=== PATIENT | male | born 1970 | race Caucasian/White ===

== ENCOUNTER 2016-05-06 10:27 | Inpatient (IN) | payer OTHER ==
[2016-05-06] VITALS (34 sets, daily range): BP systolic 127–173; BP diastolic 82–120; Ht 180.3 cm; Wt 96.8 kg
[~2016-05-06] VITALS: Ht 180.3 cm; Wt 96.8 kg
--- NOTE | ~2016-05-06 | HEMODYNAMI ---
PATIENT:PRIYA SPRINGER MEDICAL RECORD: [id number] : 74 LOCATION:[facility] [id number] ADMISSION DATE: 05/06/16 Generatedon:05/06/201612:07 Patient name: PRIYA SPRINGER Patient #: [id number] SSN: : Date of study: 05/06/2016 Page: Of Hemodynamic Procedure Report Patient Data Patient Demographics Procedure consent was obtained First Name: PRIYA Gender: Male Last Name: RACHEAL : 1970 Middle Initial: A Age: 45 year(s) Patient #: [id number] Race: Unknown Additional ID: [id number] Contact details Address: [address] [place] [address] [place] State: [place] City: [place] Zip code: [address] Past Medical History Allergies: No known allergies Admission Admission Data Admission Date: 05/06/2016 Admission Time: 11:13 Admit Source: Emergency department Room #: D.CV02 Height (in.): 71 BSA: 2.13 (m2) Height (cm.): 180.34 BMI: 28.59 (kg/m2) Weight (lbs.): 205 Weight (kg.): 92.99 Procedure Procedure Types Cath Procedure Diagnostic Procedure [facility] w/Coronaries PCI Procedure AMI-BMS/RICHARD Initial Coronary Thrombectomy Initial Miscellaneous Procedures Moderate Sedation up to 30 minutes Procedure Description Procedure Date Procedure Date: 05/06/2016 Procedure Start Time: 11:23 Procedure End Time: 12:05 Procedure Staff Name Function Lencho Avila MD Performing Physician Brina Crawford RT Scrub Yony Dos Santos RN Nurse Elie Sanchez RT Monitor Ronny Cason RT Bakery Helper Procedure Data Cath Procedure Fluoroscopy Diagnostic fluoroscopy Total fluoroscopy Time: 9.8 time: 9.8 min min Diagnostic fluoroscopy Total fluoroscopy dose: dose: 808.13 mGy 808.13 mGy Contrast Material Contrast Material Type Amount (ml) Isovue 300 163 Entry Location Entry Primary Successful Side Size Upsize Upsize Entry Closure Succes sful Closure Location (Fr) 1 (Fr) 2 (Fr) Remarks Device Remarks Femoral Right 6 Fr Vascade artery Short Closure System Estimated blood loss: 10 ml Diagnostic catheters Device Type Used For End Catheter Placement Cordis 5Fr Pigtail Procedure Catheter (MP) Cordis 5Fr JL 4.0 Procedure Catheter (MP) Cordis 5Fr 3DRC Catheter Procedure (MP) Procedure Complications No complications Procedure Medications Medication Administration Route Dosage Oxygen NC 2 l/min Heparin Flush Bag added to field 2 bags (1000units/500ml NS) 0.9% NaCl I.V. 100 ml/hr Benadryl I.V. 50 mg Fentanyl I.V. 100 mcg Versed I.V. 2 mg Heparin Bolus I.V. 5000 units Integrilin (Bolus I.V. 8.5 ml 2mg/ml) Integrilin (Bolus I.C. 8.5 ml 2mg/ml) Nitroglycerin IC/IA I.C. 300 mcg Fentanyl I.V. 100 mcg Integrilin Drip I.V. drip 14.9 ml/hr (75mg/100ml) Plavix P.O. 600 mg Hemodynamics Rest BSA: 2.13 (m2) O2 Consumption: Estimated: 273.24 (ml/min) O2 Consumption indexed : Estimated:128.28 (ml/min/m) Heart Rate: 88 (bpm) Pressure Samples Time Site Value (mmHg) Purpose Heart Use Rate(bpm) 11:42 AO 129/94(111) Snapshot 97 Snapshots Pre Cath Intra NCS Post Cath Vital Signs Time Heart Resp SPO2 NIBP (mmHg) Rhythm Pain Sedation Rate (ipm) (%) Status Level (bpm) 11:19:33 111 18 98 143/105(117) NSR 0 (11) 10(A) , No pain 11:23:49 91 17 98 152/101(125) NSR 0 (11) 10(A) , No pain 11:28:09 98 17 95 152/98(118) NSR 0 (11) 9(A) , No pain 11:32:27 98 19 98 150/105(112) NSR 0 (11) 9(A) , No pain 11:36:47 95 18 98 155/103(120) NSR 0 (11) 9(A) , No pain 11:41:07 98 17 99 150/104(119) NSR 0 (11) 9(A) , No pain 11:45:23 97 17 96 141/101(112) NSR 0 (11) 9(A) , No pain 11:49:45 84 18 96 133/85(111) NSR 0 (11) 9(A) , No pain 11:53:59 96 17 97 145/102(114) NSR 0 (11) 9(A) , No pain 11:58:20 95 18 97 125/93(119) NSR 0 (11) 9(A) , No pain 12:02:33 93 18 96 128/92(111) NSR 0 (11) 10(A) , No pain Medications Time Medication Route Dose Verified Delivered Reason Notes Effectiveness by by 11:22:38 Oxygen NC 2 Yony Yony used for l/min Levon Dos Santos mold machine operator RN 11:22:50 Heparin Flush added 2 Yony Yony used for Bag to bags Levon Dos Santos RN procedure (1000units/500ml field RN NS) 11:23:06 0.9% NaCl I.V. 100 Yony Yony Per physician ml/hr Levon Dos Santos RN RN 11:24:09 Benadryl I.V. 50 mg Yony Yony Per physician Levon Dos Santos RN RN 11:24:16 Fentanyl I.V. 100 Yony Yony for sedation mcg Levon Dos Santos RN RN 11:24:23 Versed I.V. 2 mg Yony Yony for sedation Levon Dos Santos RN RN 11:31:26 Integrilin I.V. 8.5 Yony Yony for Integr ilin (Bolus 2mg/ml) ml Levon Dos Santos RN antiplatelet 1.5mL RN therapy wasted 11:31:26 Heparin Bolus I.V. 5000 Yony Yony for units Levon Dos Santos RN anticoagulation RN 11:33:49 Integrilin I.C. 8.5 Yony Yony for integr ilin (Bolus 2mg/ml) ml Levon Dos Santos RN antiplatelet 1.5mL RN therapy wasted 11:42:02 Nitroglycerin I.C. 300 Yony Yony for IC/IA mcg Levon Dos Santos RN vasodilation RN 11:42:22 Fentanyl I.V. 100 Yony Yony for sedation mcg Levon Dos Santos RN RN 11:54:05 Integrilin Drip I.V. 14.9 Yony Bhakta for (75mg/100ml) drip ml/hr Levon Dos Santos RN antiplatelet RN therapy 12:03:08 Plavix P.O. 600 Yony Bhakta for mg Levon Dos Santos RN antiplatelet RN therapy Procedure Log Time Note 10:50:05 Ronny Cason RT(R) sent for patient. Start room use. 11:14:33 Informed consent obtained and on chart 11:14:37 Admit Source: Emergency department 11:14:57 Patient arrives emergently. 11:15:01 Diagnostic Cath status Emergency 11:15:13 Patient received from Other to CCL 2 Alert and oriented. Tansferred to table in Supine position. 11:15:14 Warm blankets applied, and niki hugger turned on for patient comfort. 11:15:14 Correct patient and procedure confirmed by team. 11:15:15 ECG and BP/O2 sat monitors applied to patient. 11:15:20 H&P Date Dictated: 05/06/2016 Within 30 days and on chart.. 11:15:21 Pre-procedure instructions explained to patient. 11:15:22 Pre-op teaching completed and patient verbalized understanding. 11:15:24 Family unavailable. 11:15:28 Patient NPO since Breakfast. 11:16:43 Patient allergic to No known allergies 11:16:45 Is the patient allergic to Iodine/contrast media? No. 11:16:47 Is patient on blood thinner?No 11:16:50 Patient diabetic? No. 11:16:58 Previous problem with sedation/anesthesia? No ? 11:16:59 Snore? Yes 11:17:03 Sleep apnea? No 11:17:04 Deviated septum? No 11:17:05 Opens mouth fully? Yes 11:17:05 Sticks out tongue? Yes 11:17:07 Airway obstruction? No ? 11:17:08 Dentures? No ? 11:17:11 Pre procedure: right dorsailis pedis pulse 2+ Normal; easily identifiable; not easily obliterated 11:17:14 Patient pain scale 0/10 ?. 11:17:32 IV patent on arrival in right antecubital with 0.9% NaCl at KVO. 11:17:35 IV patent on arrival in left antecubital with 0.9% NaCl at KVO. 11:17:50 Right groin area was prepped with chlora-prep and draped in sterile fashion 11:17:52 Sharps counted by scrub and verified by R.N. 11:17:52 Alarms reviewed by R. N. 11:17:56 Use device set Femoral Dx 11:17:59 Tegaderm 4 x 4 opened to sterile field. 11:18:00 Acist Manifold opened to sterile field. 11:18:00 Acist Hand Control opened to sterile field. 11:18:01 Acist Syringe opened to sterile field. 11:18:01 Bag Decanter opened to sterile field. 11:18:02 Medline Cath Pack opened to sterile field. 11:18:03 St Vish 260cm J .035 wire opened to sterile field. 11:18:05 Diagnostic Infinity 5Fr Multipack catheter opened to sterile field. 11:18:20 Vital chart was started 11:18:47 ThoughtLeadr BasixCompak Inflation Kit opened to sterile field. 11:18:48 Pierce Whisper J 300cm 0.014 guide wire opened to sterile field. 11:18:57 Terumo 6Fr [place] Sheath opened to sterile field. 11:19:14 Physician arrived 11:19:14 --------ALL STOP TIME OUT------ 11:19:15 Final Timeout: patient, procedure, and site verified with staff and physician. All members of the team are in agreement. 11:19:18 Right groin site verified by team. 11:19:21 Physical assessment completed. ASA score P 2 - A patient with mild systemic disease as per Lencho Avila MD. 11:19:26 Sedation plan: IV Moderate Sedation Versed, Fentanyl 11:22:38 Oxygen 2 l/min NC was given by Yony Dos Santos RN; used for procedure; 11:22:50 Heparin Flush Bag (1000units/500ml NS) 2 bags added to field was given by Yony Dos Santos RN; used for procedure; 11:23:06 0.9% NaCl 100 ml/hr I.V. was given by Yony Dos Santos RN; Per physician; 11:23:20 Procedure started. 11:23:20 Full Disclosure recording started 11:23:23 Local anesthetic to right femoral artery with Lidocaine 2% by Lencho Avila MD.INITIAL ACCESS ONLY 11:23:56 Baseline sample Acquired. 11:23:58 Zero performed for pressure channel P1 11:24:09 Benadryl 50 mg I.V. was given by Yony Dos Santos RN; Per physician; 11::13 Rhythm: sinus rhythm , w/ ST elevation 11:24:16 Fentanyl 100 mcg I.V. was given by Yony Dos Santos RN; for sedation; 11::23 Versed 2 mg I.V. was given by Yony Dos Santos RN; for sedation; 11:25:14 A 6 Fr Short sheath was inserted into the Right Femoral artery 11:25:17 A Cordis 5Fr Pigtail Catheter (MP) was advanced over the wire and used for Procedure. 11::23 LV gram done using UNGER 11:: Injector settings: Ml/sec: 10, Volume: 20, 11:25:42 EF : 55 % 11:25:44 Catheter removed. 11:25:49 A Cordis 5Fr JL 4.0 Catheter (MP) was advanced over the wire and used for Procedure. 11:26:51 LCA angiography performed. 11:27:40 Catheter removed. 11:27:45 A Cordis 5Fr 3DRC Catheter (MP) was advanced over the wire and used for Procedure. 11:28:13 RCA angiography performed. 11:29:59 Cordis 6FR XBLAD 4.0 guide catheter opened to sterile field. 11:30:05 Kimberly Sci Choice PT Extra Support J 300cm .014 gu opened to sterile field. 11:30:08 Catheter removed. 11:30:09 Proceeding to intervention. 11:30:18 6 Fr xblad 4 guide catheter was inserted over the wire 11::22 pt extra support wire advanced. 11:31:24 Wire advanced across lesion. 11::26 Integrilin (Bolus 2mg/ml) 8.5 ml I.V. was given by Yony Dos Santos RN; for antiplatelet therapy; Integrilin 1.5mL wasted ::26 Heparin Bolus 5000 units I.V. was given by Yony Dos Santos RN; for anticoagulation; ::27 Inflation number: 1 A Kimberly Sci [place] 2.0 X 20 balloon was prepped and advanced across the Mid LAD, then inflated to 13 ZULEIMA for 0:10 (min:sec). 11::38 Inflation number: 2 The Kimberly Sci [place] 2.0 X 20 balloon was reinflated across the Mid LAD, to 13 ZULEIMA for 0:00 (min:sec). 11:33:07 Patient Weight : 92.99 lbs 11:33:11 Patient Height : 180.34 inches 11:33:49 Integrilin (Bolus 2mg/ml) 8.5 ml I.C. was given by Yony Dos Santos RN; for antiplatelet therapy; integrilin 1.5mL wasted 11:35:43 Balloon removed over the wire. 11:40:19 Inflation Number: 3 A Topmalltronic Integrity 3.5 X 30 stent was prepped and advanced across the Mid LAD. The stent was deployed at 13 ZULEIMA for 0:13 (min:sec). 11:42:02 Nitroglycerin IC/IA 300 mcg I.C. was given by Yony Dos Santos RN; for vasodilation; 11:42:22 Fentanyl 100 mcg I.V. was given by Yony Dos Santos RN; for sedation; 11:42:41 Stent catheter was removed intact over wire. 11:47:38 Angiojet 4Fr XMI Catheter opened to sterile field. 11:48:28 Angiojet inserted into the LAD. 11:50:11 Angiojet run time 10 seconds 11:51:26 Angiojet run time 10 seconds 11:51:32 Angiojet total run time 20 seconds 11:51:33 Angiojet catheter removed over the wire. 11:54:05 Integrilin Drip (75mg/100ml) 14.9 ml/hr I.V. drip was given by Yony Dos Santos RN; for antiplatelet therapy; 11:54:11 Wire removed. 11:54:12 Guide catheter removed. 11:54:13 ACC Post-intervention GUILLERMO Flow is 3. 11:54:37 Vascade 6/7 Fr Closure Device opened to sterile field. 11:54:49 Sheath removed intact; hemostasis achieved with Vascade Closure System to the Right Femoral artery. 11:54:50 Procedure ended.(Physican Out) 11:55:16 Fluoroscopy time 09.80 minutes. 11:55:22 Fluoroscopy dose: 808.13 mGy 11:55:22 Flurop Dose total: 808.13 11:55:27 Contrast amount:Isovue 300 163ml. 11:55:28 Sharps counted by scrub and verified by R.N. 11:56:53 Insertion/operative site no bleeding no hematoma. 11:57:02 Post-op/insertion site Right Femoral artery dressed using a 4 x 4 and Tegaderm. 11:57:04 Post Procedure Pulses reassessed and unchanged 11:57:13 Post-procedure physical assessment completed. ASA score P 2 - A patient with mild systemic disease as per Lencho Avila MD. 11:57:15 Post procedure rhythm: sinus rhythm 11:57:26 Estimated blood loss: 10 ml 11:57:28 Post procedure instruction explained to patient.Patient verbalizes understanding. 11:57:29 Patient needs reinforcement of post procedure teaching. 11:58:16 Procedure type changed to Cath procedure, Diagnostic procedure, LHC, LHC w/Coronaries, PCI procedure, AMI-BMS/RICHARD Initial, Coronary Thrombectomy Initial, Miscellaneous Procedures, Moderate Sedation up to 30 minutes 11:58:19 Procedure Complication : No complications 11:59:43 Procedure and supply charges have been captured, reviewed, submitted and are correct. 12:03:08 Plavix 600 mg P.O. was given by Yony Dos Santos RN; for antiplatelet therapy; 12:03:38 Femstop placed over the right femoral artery at 160 mmHg. Hemostasis achieved. 12:04:01 Due to oozing, Femstop placed. 12:04:08 St Vish Femstop Arch Gold opened to sterile field. 12:05:31 Vital chart was stopped 12:05:32 See physician's report for complete and final results. 12:05:36 Report given to ICU. 12:05:39 Patient transfered to ICU with Bed. 12:05:48 Procedure ended. 12:05:48 Full Disclosure recording stopped 12:06:30 ACC-PCI Only Patient was given prescriptions, or instructed by Lencho Avila MD to start/continue the following medications upon discharge: Plavix 12:06:49 End room use (Document Last) Intervention Summary Intervention Notes Time ActionType Lesion and Equipment Action# Pressure Duration Attributes Used 11:31:27 Inflate Mid LAD Kimberly 1 13 00:10 balloon Sci Winona 2.0 X 20 balloon 11:31:38 Reinflate Mid LAD Kimberly 2 13 00:00 balloon Sci Win[place] 2.0 X 20 balloon 11:40:19 Place stent Mid LAD Medtronic 3 13 00:13 Integrity 3.5 X 30 stent Device Usage Item Name Manufacture Quantity Catalog Number Hospital Part Current Mini mal Lot# / Charge Number Stock Stock Serial# Code Tegaderm 4 1 [id number] 546045 040636 5 x 4 Acist Acist 1 86166 107968 191636 273663 5 Manifold Medical Systems Inc Acist Hand Acist 1 41094 257791 123897 510284 5 Control Medical Systems Inc Acist Acist 1 76946 610129 551702 501758 20 Syringe Medical Systems Inc Bag Microtek 1 2002S 058630 13809 562841 5 Familiar Inc. Medline Cardinal 1 [id number] 694020 04097 639158 [address] St Vish 1 320775 191761 485888 599218 30 260cm J .035 wire Diagnostic Cardinal 1 [id number] 125708 29694 402891 30 Infinity Health 5Fr Multipack catheter Merit Merit 1 [id number] 047650 841084 198558 15 BasixCompak Medical Inflation Kit Pierce Pierce 1 [id number] 702500 829160 096241 5 Whisper J Vascular 300cm 0.014 guide wire Terumo 6Fr Terumo 1 AMR194 529098 238505 748063 40 [place] Sheath Cordis 5Fr Cardinal 1 362534 5 Pigtail Health Catheter (MP) Cordis 5Fr Cardinal 1 311194 5 JL 4.0 Health Catheter (MP) Cordis 5Fr Cardinal 1 242857 5 3DRC Health Catheter (MP) Cordis 6FR Cardinal 1 [id number] 320622 123616 848244 3 XBLAD 4.0 Health guide catheter Kimberly Sci Kimberly 1 [id number] 50430020180918 509571 5 Choice PT Scientific Extra Support J 300cm .014 gu Kimberly Sci Kimberly 1 [id number] 292034 276200 925933 1 [id number] Winona Scientific 2.0 X 20 balloon Medtronic Medtronic 1 [id number] 385182 046270 779666 1 [id number] Integrity 3.5 X 30 stent Angiojet Kimberly 1 880554-144 636948 407040 388208 1 4Fr XMI Scientific Catheter Vascade 6/7 Cardiva 1 [id number] 982441 775127 714815 5 Fr Closure Medical, Device Inc. St Vish St Vish 1 [id number] 303420 281168 068401 5 Femstop Arch Gold Signature Audit [place] Stage Time Signature Unsigned Intra-Procedure 05/06/2016 Ronny Cason 12:07:18 PM RT(R) Signatures Monitor : Elie Sanchez RT Signature : Date : Time : [facility] [address] [place] [address]
[2016-05-06 12:44] LABS: CALC OSMOLALITY 278 mosm/kg (275-300); CALCIUM 8.8 mg/dL (8.5-10.1); CHLORIDE - SERUM 102 mmol/L (98-107); CREATININE - SERUM 0.9 mg/dL (0.6-1.3); GLUCOSE 126 mg/dL (74-106); POTASSIUM - SERUM 4.3 mmol/L (3.5-5.1); SODIUM 138 mmol/L (136-145); UREA NITROGEN 14 mg/dL (7-18); eGFR NON AFRICAN AMERICAN > 90 mL/min (90-120)
[2016-05-06 12:45] LABS: BASOPHILS 0.1 % (0.0-2.0); EOSINOPHILS 0 % (0-7); HEMATOCRIT 42.3 % (42.0-54.0); HEMOGLOBIN 15.2 g/dL (13.5-17.5); IMMATURE GRANULOCYTES 0.3 % (0-5); LYMPHOCYTES 3.8 % (15-50); MCH 30.8 pg (26.0-34.0); MCHC 35.9 g/dL (31.0-37.0); MCV 85.6 fL (80.0-100.0); MEAN PLATELET VOLUME 9.6 fL (7.4-10.4); MONOCYTES 2.2 % (2-11); NEUTROPHILS 93.6 % (40-80); PLATELET COUNT 193 10x3/uL (130-400); RBC 4.94 10x6/uL (4.20-6.10); RDW 12.7 % (11.5-14.5); WBC 15.1 10x3/uL (4.8-10.8)
--- NOTE | 2016-05-06 15:28 | NUR ---
1330RECIEVED PER FLOW SHEET-AWAKE ALERT-STATES PAIN FREE AT THIS TIME-STATES ORIGINAL ELIZ 12/27-MID CHEST TO BACK- CURRENTLY-ST ON MONITOR -R AC INFUSING INTEGRELIN AT 14.7-N/S AT 100ML-PROVIDED URINAL AND STRONGLY INFORMED TO REMAIN IN BED FLAT UNTIL 1630-SITE SOFT BELOW FEMSTOP AND ABOVE-BOUNDING R PP-ICE CHIPS GIVEN-O2 AT 2L ACCOUNT SUPPORT MANAGER AND FAMILY BROUGHT TO [facility] 1345-FEMSTOP DECREASED PER PROTOCOL-R PPP BOUNDING-SOFT TO SITE 1400-H2O GIVEN-FAMILY REMAINS AT [facility]-FEMSTOP DECREASED PER PROTOCOL-R PPP BOUNDING-ST 100- 1415-FEMSTOP DECREASED PER PROTOCOL-R PPP BOUNDING-SOFT TO TOUCH 1430-DR GARNICA AT [facility]-QUESTIONS ADDRESED BY FAMILY-FEMSTOP RELEASED-R PPP BOUNDING 1445-RESTING QUIETLY-FAMILY AT BEDSIDE-R GROIN SITE SOFT TO TOUCH 1500-NO CHANGES NOTED-SR ON MONITOR
--- NOTE | 2016-05-06 16:37 | NUR ---
Patient Name: PRIYA SPRINGER Admission Status: Urgent Accout number: [id number] Admission Date: 05-06-2016 : 1970 Admission Diagnosis:ST ELEVATION (STEMI) MYOCARDIAL INFARCTION OF [facility] SITE Attending: KENDELL Current LOS: 1 Anticipated DC Date: 05-07-2016 Planned Disposition: Home Primary Insurance: [employer] POS FLEXCARE Is the patient Alert and Oriented? Yes * How many steps to enter\exit or inside your home? FOUR --WITH HAND RAIL * PCP DR KWASI SCHWARTZ * Pharmacy [facility] IN [place], [place] * Preadmission Environment Home with Family * ADLs Independent * Equipment None * List name and contact numbers for known caregivers / representatives who currently or will assist patient after discharge: CAIT SPRINGER, SPOUSE, * Community resources currently utilized None * Additional services required to return to the preadmission environment? No * Can the patient safely return to the preadmission environment? Yes * Has this patient been hospitalized within the prior 30 days at any hospital? No Discharge Planning Comments: CM MET WITH PATIENT TO ASSESS DC PLAN/NEEDS. PT STATED THAT HE LIVES AT HOME WITH HIS FAMILY AND IS INDEPENDENT IN HIS CARE/ADL'S. STATED THAT HE AMBULATES WITH NO ASSISTANCE AND TYPICALLY DRIVES HIMSELF. HIS , CAIT, WILL DRIVE HIM HOME AT DC. HE STATED THAT HE HAS NO DME EQUIPMENT AND HAS NEVER USED HH SERVICES IN THE PAST. HE DENIED NEED FOR ANY DME OR HH SERVICES AT DISCHARGE. HE STATED THAT HIS HOME IS A SAFE PLACE AND PLANS TO RETURN HOME AT DISCHARGE. HE VOICED NO DISCHARGE NEEDS AT THIS TIME. CM WILL FOLLOW AND ASSIST WITH ANY DC NEEDS THEY ARISE. Industrial Engineering Technologist: Cait Zepeda RN, CM
--- NOTE | 2016-05-06 18:35 | NUR ---
1630-INTEGRILIN INFUSED [id number] SCALE 0/0-CHEST--R GROIN SOFT TO TOUCH-NO HEMATOMA AND POUNDING PEDAL PULSE 1700-DR GARNICA NOTIFIED REGARDING NIBP 156/114-HR 110-NO RESPONSE TO LOPRESSOR DOSE GIVEN-ORDER RECIEVED AND CONFIRMED-100MG PO NOW AND 100MG PO AT 2100-THEN BID 1715-LOPRESSOR PO GIVEN ORDERED-FAMILY EXPRESSED STRONG CONCERN REGARDING NIBP-PT TEACHING-WILL SEE EFFECTS APPROX 2HR-AND CALL DR GARNICA FOR ADDITIONAL ORDERS-VOCALIZED USED DIOVON IN THE PAST WITH GOOD RESULTS 1730-FAMILY MEMBER AT DESK AND STATED MEDICINE NOT WORKING-PT/FAMILY TEACHING DONE -IV BLOOD PRESSURE MEDICINE
--- NOTE | 2016-05-06 19:00 | NUR ---
PT AOX4, DENIES CHEST PAIN. HYPERTENSIVE ON MONITOR. RT GROIN SOFT WITH NO S/S OF HEMATOMA. PT REPOSITIONED FOR COMFORT. RESPIRATIONS UNLABORED, LUNG SOUNDS CLEAR. URINAL AT BEDSIDE. VOICES NO FURTHER NEEDS AT THIS TIME. CALL LIGHT AND BEDSIDE TABLE WITHIN PT REACH. CPOC.
--- NOTE | 2016-05-06 21:00 | NUR ---
FAMILY AT BEDSIDE, UPDATE GIVEN. DENIES CHEST PAIN. FRESH WATER TO BEDSIDE. PT REPOSITIONED FOR COMFORT. RT GROIN SOFT WITH NO S/S OF HEMATOMA. PEDAL PULSES BOUNDING. DENIES FURTHER NEEDS AT THIS TIME. CALL LIGHT AND BEDSIDE TABLE WITHIN PT REACH. CPOC.
--- NOTE | 2016-05-06 22:58 | NUR ---
REMAINS HYPERTENSIVE ON MONITOR, TAUTH PAGED.
--- NOTE | 2016-05-06 23:04 | NUR ---
CALLBACK FROM MESSI GARNICA REC'D
[2016-05-07] VITALS (13 sets, daily range): BP systolic 110–152; BP diastolic 70–110
--- NOTE | 2016-05-07 01:00 | NUR ---
PT RESTING QUIETLY WITH UNLABORED RESPIRATIONS. INDEPENDENT REPOSITIONING. PEDAL PULSES BOUNDING, RT GROIN WITH NO S/S OF HEMATOMA. CALL LIGHT AND BEDSIDE TABLE WITHIN PT REACH. CPOC.
--- NOTE | 2016-05-07 03:00 | NUR ---
REASSESSMENT COMPLETE, SEE FLOWSHEET FOR ALL FINDINGS. NO ACUTE CHANGES AT THIS TIME, BP TRENDING DOWN. NO S/S OF ACUTE DISTRESS OR PAIN. PEDAL PULSES BOUNDING. RT GROIN SOFT WITH NO S/S OF HEMATOMA. CPOC
[2016-05-07 05:19] LABS: BASOPHILS 0.1 % (0.0-2.0); EOSINOPHILS 0.7 % (0-7); HEMATOCRIT 44.2 % (42.0-54.0); HEMOGLOBIN 15.7 g/dL (13.5-17.5); IMMATURE GRANULOCYTES 0.3 % (0-5); LYMPHOCYTES 13.4 % (15-50); MCH 30.8 pg (26.0-34.0); MCHC 35.5 g/dL (31.0-37.0); MCV 86.7 fL (80.0-100.0); MEAN PLATELET VOLUME 9.7 fL (7.4-10.4); MONOCYTES 7.8 % (2-11); NEUTROPHILS 77.7 % (40-80); PLATELET COUNT 185 10x3/uL (130-400); WBC 16.1 10x3/uL (4.8-10.8)
[2016-05-07 05:45] LABS: CALC OSMOLALITY 272 mosm/kg (275-300); CALCIUM 9.4 mg/dL (8.5-10.1); CARBON DIOXIDE 25.5 mmol/L (21.0-32.0); CHLORIDE - SERUM 103 mmol/L (98-107); CREATININE - SERUM 0.8 mg/dL (0.6-1.3); GLUCOSE 107 mg/dL (74-106); POTASSIUM - SERUM 4.1 mmol/L (3.5-5.1); SODIUM 137 mmol/L (136-145); UREA NITROGEN 11 mg/dL (7-18); eGFR NON AFRICAN AMERICAN > 90 mL/min (90-120)
[2016-05-07] MEDS ORDERED: PRAVACHOL40 MG PO (11:27)
[2016-05-07] MEDS ORDERED: PLAVIX75 MG PO (11:27)
[2016-05-07] MEDS ORDERED: METOPROLOL TART50 MG PO (11:27)
--- NOTE | 2016-05-07 13:12 | NUR ---
0715-RECIEVED AWAKE AND ALERT-STATES FEELS BETTER NOTED SR AT 84 ON MONITOR-PLACED ON TELEMETRY-AMBULATING IN RM WITHOUT DIFFICULTY-ENCOURAGED TO CALL FAMILY -POSSIBLE DISCHARGE -ENCOURAGED TO AMBULATE-BREAKFEST TRAY GIVEN 0800-FAMILY AT BEDSDIE- 0830-RESTING QUIETLY 1015-[facility] CUR[facility] NIBP-117/78-INFORMED NO 0900 BP MEDS GIVEN AT THIS TIME-DIRECTED TO GIVE LOPRESSOR 100MG PO-AND CONTINUE HOME SCRIPT-PT ADDDRESSED QUESTIONS TO DR GARNICA AND DIRECTION GIVEN-PT AND APPEARED SATISFIED-DISCHARGE ORDER GIVEN-R AND L AC-D/C'D WITH TIP INTACT-REVIEWED IN DETAIL R GROIN CARE AND RISK-INFORMED TO CALL 911 FOR CLOSES ER-INFORMED OF HEART RATE CHECK PRIOR TO TAKING LOPRESSOR BETABLOCKER-NOTIFY DR GARNICA OFFICE ASSISTANT UNIT FORESTER IF IN 60'S PRIOR TO TAKING FOR FURTHER DIRECTION 1200-DISCHARGE WITH -PAPER PRESCRIPTIONS GIVEN-UPDATED MED LIST GIVEN
--- NOTE | 2016-05-13 08:46 | DS ---
PATIENT:PRIYA SPRINGER :74 MEDICAL RECORD: [id number] DISCHARGE SUMMARY ADMISSION DATE: 05/06/16 DISCHARGE DATE: 05/07/16 DISCHARGE DIAGNOSES: 1. Acute anterior myocardial infarction. 2. Percutaneous transluminal coronary angioplasty stent LAD. 3. Hypertension. 4. Hyperlipidemia. HOSPITAL COURSE: This is a gentleman who has no previous cardiac history, presented to [facility] with hypertensive crisis, as well as acute anterior myocardial infarction and was transferred here, underwent PTCA stent of the LAD, had an uneventful postop course, blood pressure control with Lopressor. Hyperlipidemia is controlled with pravastatin and was discharged home with the addition of Lopressor, pravastatin, aspirin and Plavix to his medical regimen. We will follow up with [facility] in 1 month in [place]. TRANSINT:[id number] Voice Confirmation ID: [id number] DOCUMENT ID: [id number] CUAUHTEMOC GARNICA MD at 0846 CC: [id number] DICTATION DATE: 05/07/16 1036 DURABILITY TECHNICIAN: 05/07/16 2328 DIS IN 05/07/16 [facility] [address] [place] [address]
--- NOTE | 2016-05-13 08:46 | OP ---
PATIENT NAME: PRIYA SPRINGER MEDICAL RECORD: [id number] :74 LOCATION:D.[facility] D.CV02 ADMISSION DATE:05/06/16 SURGEON: CUAUHTEMOC GARNICA MD DATE OF OPERATION: 05/06/2016 PROCEDURES: 1. PTCA stent LAD. 2. AngioJet thrombectomy LAD. 3. Left heart catheterization. 4. Selective coronary angiography. 5. Left ventriculogram. INDICATION: Acute anterior myocardial infarction. PROCEDURE IN DETAIL: After informed consent was obtained and after detailed explanation of risks, benefits as well as alternative therapies, the patient elected to proceed with angiogram and angioplasty. The right femoral area was prepped and draped in normal sterile fashion. The right femoral artery was cannulated via modified Seldinger technique with placement of 6-Spanish sheath. All catheters exchanged through this sheath. FINDINGS: The left ventriculogram was performed in the standard 30-degree UNGER view, reveals good cardiac wall motion, ejection fraction 50%. SELECTIVE CORONARY ANGIOGRAPHY: 1. Left main showed no significant angiographic disease. 2. Left anterior descending is totally occluded in mid vessel. 3. Left circumflex shows moderate irregularities. 4. Right coronary has moderate irregularities. PTCA STENT OF THE LAD: The stent used is a 3.5 x 30 mm Integrity. There was a large clot burden. We address this with AngioJet thrombectomy. Result was 0% residual stenosis. OVERALL IMPRESSION: Successful percutaneous transluminal coronary angioplasty stent of the left anterior descending along with AngioJet thrombectomy for an acute anterior myocardial infarction with 0% residual stenosis and mormon of GUILLERMO-3 flow. TRANSINT:[id number] Voice Confirmation ID: [id number] DOCUMENT ID: [id number] CUAUHTEMOC GARNICA MD at 0846 CC: [id number] DICTATION DATE: 05/06/16 1203 CONTINUOUS IMPROVEMENT DIRECTOR: 05/06/16 1905 DIS IN 05/07/16 [facility] [address] [id number]
--- NOTE | 2016-05-13 08:46 | HP ---
PATIENT: PRIYA SPRINGER MEDICAL RECORD: [id number] ACCOUNT: [id number] LOCATION:[facility] D.CV02 : 74 ADMISSION DATE: 05/06/16 HISTORY AND PHYSICAL EXAMINATION DIAGNOSES: 1. Acute anterior myocardial infarction. 2. Coronary artery disease. 3. Hyperlipidemia. HISTORY OF PRESENT ILLNESS: This is a gentleman with no previous cardiac history, no real medical history, only a history of a hernia surgery in the past. He is on no medications. He began having chest pain yesterday; however, it abated. Today he had severe chest pain, presented to [facility]. He is positive for an acute anterior myocardial infarction. He was not given thrombolytics secondary to the extreme hypertension. PHYSICAL EXAMINATION: GENERAL APPEARANCE: Well-nourished, well-developed, appears stated age. Level of distress, comfortable. PSYCHIATRIC: Mental status, alert, normal affect. Orientation, oriented to time, place and person. EYES: Lids and conjunctiva, noninjected. No discharge, no pallor. ENT: Lips, teeth, gums, normal dentition. Oropharynx, no cyanosis, no pallor. NECK: Carotid arteries, bilateral normal upstroke, no bruits, no thrills. JUGULAR VEINS: No jugular venous pressure or distention. CERVICAL LYMPH NODES: Nontender, nonenlarged. THYROID: Not enlarged. Nontender. No nodules. LUNGS: Respiratory effort, unlabored. CHEST: Normal curvature. No thoracic deformity. No chest wall tenderness. Percussion, resonant. Auscultation, clear. No wheezes, no rales, no rhonchi. CARDIOVASCULAR: Precordial exam, nondisplaced. No heaves or pericardial thrills. Rate and rhythm, regular. Heart sounds, normal S1, normal S2. No S3, no gallop, no rub. Systolic murmur, not heard. Diastolic murmur, not heard. EXTREMITIES: No cyanosis, no edema. Peripheral pulses, full and equal in all extremities, except as noted. No bruits appreciated. ABDOMEN: Soft, nondistended. Normal aorta. No bruit. Nontender. No masses. Liver, nontender, no hepatomegaly. Spleen, nontender, no splenomegaly. MUSCULOSKELETAL: No joint tenderness. No joint swelling. No erythema. NEUROLOGICAL: Normal gait, normal strength, normal tone. SKIN: Warm and dry. REVIEW OF SYSTEMS: The patient reports easy bruising but reports no swollen glands. The patient reports no fever, no night sweats, no significant weight gain, no significant weight loss. No significant exercise tolerance. The patient reports no dry eyes, no irritation, no vision change. Patient reports no difficulty hearing and no ear pain. Patient reports no frequent nose bleeds or nose and sinus problems. Patient reports on arm pain on exertion. No shortness of breath while lying down. No history of heart murmur. Patient reports no cough, no wheezing or coughing up blood. Patient reports no abdominal pain, no vomiting. Normal appetite. No diarrhea and not vomiting blood. No nausea and no constipation. Patient reports no incontinence. No difficulty urinating. No hematuria. No increased frequency. Patient reports no muscle aches. No weakness, no arthralgias, no back pain. No swelling of the extremities. Patient reports no abnormal mole, no jaundice, no rashes. Reports HISTORY AND PHYSICAL [id number] SELF,BUZZ no loss of consciousness. No weakness and no numbness. No seizures, dizziness, or headaches. The patient reports no depression, no sleep disturbance, feeling safe in a relationship and no alcohol abuse. Patient reports on fatigue. Reports no runny nose or sinus pressure. No itching, no hives, and no frequent sneezing. OVERALL IMPRESSION: Acute anterior myocardial infarction. He was transported here by helicopter. He is still having chest pain. He is still having ST elevation. We will proceed with coronary angiography. Further care depends upon findings of the angiography. TRANSINT:[id number] Voice Confirmation ID: [id number] DOCUMENT ID: [id number] CUAUHTEMOC GARNICA MD at 0846 CC: [id number] DICTATION DATE: 05/06/16 1201 BUILDING ARCHITECTURAL DESIGNER: 05/06/16 1249 DIS IN 05/07/16 [id number] [place] [id number]
== END 2016-05-07 12:00 | disposition home or self-care (01) | DRG 249 ==
LOC: D.CVICU 10:27
PROVIDERS: ADMIT Internal Medicine Interventional Cardiology
PROC: 4A023N7 Measurement of Cardiac Sampling and Pressure, Left Heart, Percutaneous Approach (ICD-10-PCS; 2016-05-06)
PROC: B2111ZZ Fluoroscopy of Multiple Coronary Arteries using Low Osmolar Contrast (ICD-10-PCS; 2016-05-06)
PROC: B2151ZZ Fluoroscopy of Left Heart using Low Osmolar Contrast (ICD-10-PCS; 2016-05-06)
PROC: 02C03ZZ Extirpation of Matter from Coronary Artery, One Artery, Percutaneous Approach (ICD-10-PCS; principal; 2016-05-06 11:30)
PROC: 02703DZ Dilation of Coronary Artery, One Artery with Intraluminal Device, Percutaneous Approach (ICD-10-PCS; 2016-05-06 11:30)
DX: I21.09 ST elevation (STEMI) myocardial infarction involving other coronary artery of anterior wall (principal); I16.9 Hypertensive crisis, unspecified; I25.10 Atherosclerotic heart disease of native coronary artery without angina pectoris; E78.5 Hyperlipidemia, unspecified

== ENCOUNTER 2017-12-01 17:30 | Inpatient (IN) | payer OTHER ==
[~2017-12-01] VITALS: Ht 180.3 cm; Wt 85.9 kg
--- NOTE | ~2017-12-01 | HEMODYNAMI ---
PATIENT:PRIYA SPRINGER MEDICAL RECORD: [id number] : 74 LOCATION:[place] [address] ADMISSION DATE: 12/01/17 Generatedon:12/01/201719:22 Patient name: PRIYA SPRINGER Patient #: [id number] SSN: : Date of study: 12/01/2017 Page: Of Hemodynamic Procedure Report Patient Data Patient Demographics Procedure consent was obtained First Name: PRIYA Gender: Male Last Name: RACHEAL : 1970 Middle Initial: A Age: 47 year(s) Patient #: [id number] Race: Unknown Additional ID: [id number] Contact details [address]: [address] [place] [address] [place]: [place] City: [place] Zip code: [address] Past Medical History Allergies: No known allergies Admission Admission Data Admission Date: 12/01/2017 Admission Time: 18:04 Room #: [facility] Procedure Procedure Types Cath Procedure Diagnostic Procedure LHC LHC w/Coronaries PCI Procedure AMI/SVG/RING FACER PTCA or Stent AMI-BMS/RICHARD Initial Procedure Description Procedure Date Procedure Date: 12/01/2017 Procedure Start Time: 18:26 Procedure End Time: 19:21 Procedure Staff Name Function Joe Chester MD Performing Physician Ronny Cason RT Monitor Yony Dos Santos RN Nurse Roxann Amaya RT Scrub Procedure Data Cath Procedure Fluoroscopy Diagnostic fluoroscopy Total fluoroscopy Time: time: 19.4 min 19.4 min Diagnostic fluoroscopy Total fluoroscopy dose: dose: 1739 mGy 1739 mGy Contrast Material Contrast Material Type Amount (ml) Isovue 300 152 Entry Location Entry Primary Successful Side Size Upsize Upsize Entry Closure Succes sful Closure Location (Fr) 1 (Fr) 2 (Fr) Remarks Device Remarks Femoral Right 6 Fr Exoseal artery Short Estimated blood loss: 10 ml Diagnostic catheters Device Type Used For End Catheter Placement MULTIPACK JL 4.0 5Fr Procedure catheter MULTIPACK 3DRC 5Fr Procedure catheter MULTIPACK Pigtail 5 Fr Procedure catheter Procedure Complications No complications Procedure Medications Medication Administration Route Dosage Oxygen etCO2 Nasal cannula 2 l/min Heparin Flush Bag added to field 2 bags (1000units/500ml NS) 0.9% NaCl I.V. 100 ml/hr Fentanyl I.V. 50 mcg Versed I.V. 1 mg Fentanyl I.V. 50 mcg Versed I.V. 1 mg Fentanyl I.V. 50 mcg Heparin Bolus I.V. 5000 units Fentanyl I.V. 50 mcg Integrilin (Bolus I.V. 7.9 ml 2mg/ml) Phenergan I.V. 25 mg Integrilin Drip I.V. drip 13.8 ml/hr (75mg/100ml) Brilinta P.O. 180 mg Hemodynamics Rest Heart Rate: 81 (bpm) Pressure Samples Time Site Value (mmHg) Purpose Heart Use Rate(bpm) 18:34 AO 109/77(93) Snapshot 95 18:43 AO 110/87(99) Snapshot 95 18:52 AO 104/82(94) Snapshot 95 19:12 LV 128/3,34 Snapshot 91 Gradients Valve Time Site Site Mean SEP/DFP Peak To Heart Use 1 2 (mmHg) (sec/min) Peak Rate (mmHg) (bpm) Aortic 19:14 LV AO 104 Snapshots Pre Cath Intra NCS Post Cath Vital Signs Time Heart Resp SPO2 etCO2 NIBP (mmHg) Rhythm Pain Sedation Rate (ipm) (%) (mmHg) Status Level (bpm) 18:18:42 84 20 0 140/88(105) NSR 0 (11) 10(A) , No pain 18:23:23 77 18 98 30 137/81(100) NSR 0 (11) 10(A) , No pain 18:28:02 81 16 97 0 127/80(102) NSR 0 (11) 9(A) , No pain 18:32:38 91 16 95 37.5 128/81(100) NSR 0 (11) 9(A) , No pain 18:37:15 95 16 98 33 132/88(101) NSR 0 (11) 9(A) , No pain 18:41:51 92 18 98 32.2 127/82(102) NSR 0 (11) 9(A) , No pain 18:48:41 93 18 97 27 139/84(101) NSR 0 (11) 9(A) , No pain 18:53:19 100 18 98 36 117/72(93) NSR 0 (11) 9(A) , No pain 18:57:54 102 16 98 34.5 123/88(101) NSR 0 (11) 9(A) , No pain 19:02:30 86 16 97 36.7 118/83(103) NSR 0 (11) 9(A) , No pain 19:07:05 97 16 98 36 123/90(106) NSR 0 (11) 9(A) , No pain 19:11:39 97 17 99 36.7 135/91(106) NSR 0 (11) 9(A) , No pain 19:16:14 161 29 98 32.2 134/94(101) NSR 0 (11) 10(A) , No pain 19:19:20 101 17 96 37.5 129/94(106) NSR 0 (11) 10(A) , No pain Medications Time Medication Route Dose Verified Delivered Reason Notes Effectiveness by by 18:19:09 Oxygen etCO2 2 Joe Yony Per physician Nasal l/min Henrik Dos Santos RN cannula 18:19:17 Heparin Flush added 2 Joe Yony used for Bag to bags Henrik Dos Santos christmas tree grower (1000units/500ml field NS) 18:19:27 0.9% NaCl I.V. 100 Joe Yony Per physician ml/hr Henrik Dos Santos RN 18:22:16 Fentanyl I.V. 50 Joe Yony for sedation mcg Henrik Dos Santos RN 18:22:23 Versed I.V. 1 mg Joe Yony for sedation Henrik Dos Santos RN 18:25:30 Fentanyl I.V. 50 Joe Yony for sedation mcg Henrik Dos Santos RN 18:25:34 Versed I.V. 1 mg Joe Yony for sedation Henrik Dos Santos RN 18:32:18 Fentanyl I.V. 50 Joe Yony for sedation mcg Henrik Dos Santos RN 18:32:27 Heparin Bolus I.V. 5000 Joe Yony for units Henrik Dos Santos RN anticoagulation 18:38:17 Fentanyl I.V. 50 Joe Yony for sedation mcg Henrik Dos Santos RN 18:49:54 Integrilin I.V. 7.9 Joe Yony for (Bolus 2mg/ml) ml Henrik Dos Santos RN antiplatelet therapy 18:50:40 Phenergan I.V. 25 mg Joe Bhakta for nausea Henrik Dos Santos RN 18:55:30 Integrilin Drip I.V. 13.8 Joe Bhakta for (75mg/100ml) drip ml/hr Henrik Dos Santos RN antiplatelet therapy 19:18:42 Brilinta P.O. 180 Joe Bhakta for mg Henrik Dos Santos RN antiplatelet therapy Procedure Log Time Note 18:00:26 Ronny Cason RT(R) sent for patient. Start room use. 18:17:35 Time tracking: Call back (After hours or weekends) 18:17:40 Plan of Care:Hemodynamics will remain stable., Cardiac rhythm will remain stable., Comfort level will be maintained., Respiratory function will remain adequate., Patient/ family verbilizes understanding of procedure., Procedure tolerated without complication., Recovers from procedure without complications.. 18:17:43 Patient arrives emergently. 18:17:50 Patient received from ED to CCL 1 Alert and oriented. Tansferred to table in Supine position. 18:17:51 Warm blankets applied, and niki hugger turned on for patient comfort. 18:17:52 Correct patient and procedure confirmed by team. 18:17:54 Signed procedure consent form obtained from patient. 18:17:55 ECG and BP/O2 sat monitors applied to patient. 18:17:55 Vital chart was started 18:18:01 Rhythm: sinus rhythm , w/ ST elevation 18:19:09 Oxygen 2 l/min etCO2 Nasal cannula was administered by Yony Dos Santos RN; Per physician; 18:19:17 Heparin Flush Bag (1000units/500ml NS) 2 bags added to field was administered by Yony Dos Santos RN; used for procedure; 18:19:27 0.9% NaCl 100 ml/hr I.V. was administered by Yony Dos Santos RN; Per physician; 18:19:39 Baseline sample Acquired. 18:19:41 Full Disclosure recording started 18:19:45 H&P Date Dictated: 12/01/2017 Emergent; H&P N/A. 18:19:46 Pre-procedure instructions explained to patient. 18:19:47 Pre-op teaching completed and patient verbalized understanding. 18:19:48 Family unavailable. 18:19:51 Patient NPO since Breakfast. 18:19:54 Is the patient allergic to Iodine/contrast media? No. 18:20:00 Is patient on blood thinner?No 18:20:01 Patient diabetic? No. 18:20:04 Previous problem with sedation/anesthesia? No ? 18:20:05 Snore? Yes 18:20:06 Sleep apnea? No 18:20:07 Deviated septum? No 18:20:09 Opens mouth fully? Yes 18:20:09 Sticks out tongue? Yes 18:20:11 Airway obstruction? No ? 18:20:14 Dentures? No ? 18:20:16 Pre procedure: right dorsailis pedis pulse 1+ Palpable, but thready & weak; easily obliterated 18:20:19 Patient pain scale 2/10 Physician observed.. 18:20:54 IV patent on arrival in right forearm with 0.9% NaCl at KVO. 18:21:52 Heparin and Nitro dc'd upon arrival to Optic Fibre Drawer. 18:21:57 Lab results completed and on chart. 18:22:00 Right groin area was prepped with chlora-prep and draped in sterile fashion 18:22:01 Alarms reviewed by R. N. 18:22:02 Sharps counted by scrub and verified by R.N. 18:22:04 --------ALL STOP TIME OUT------ 18:22:05 Final Timeout: patient, procedure, and site verified with staff and physician. All members of the team are in agreement. 18:22:06 Right groin site verified by team. 18:22:09 Physical assessment completed. ASA score P 3 - A patient with severe systemic disease as per Joe Chester MD. 18:22:13 Sedation plan: IV Moderate Sedation Medication:Versed, Fentanyl 18:22:16 Fentanyl 50 mcg I.V. was administered by Yony Dos Santos RN; for sedation; 18:22:23 Versed 1 mg I.V. was administered by Yony Dos Santos RN; for sedation; 18:25:30 Fentanyl 50 mcg I.V. was administered by Yony Dos Santos RN; for sedation; 18:25:34 Versed 1 mg I.V. was administered by Yony Dos Santos RN; for sedation; 18:26:08 Procedure started. 18:26:10 Local anesthetic to right femoral artery with Lidocaine 2% by Joe Chester MD.INITIAL ACCESS ONLY 18:26:37 Use device set Femoral Dx 18:26:41 Use device set CHESTER PCI 18:26:45 ACIST Syringe (54293) opened to sterile field. 18:26:45 Bag Decanter (2002S) opened to sterile field. 18:26:46 Medline Cath Pack ([id number]) opened to sterile field. 18:26:47 ACIST Hand Control (46006) opened to sterile field. 18:26:47 ACIST Manifold (41048) opened to sterile field. 18:26:49 Tegaderm 4 x 4 (1626W) opened to sterile field. 18:26:50 PERCUTANEOUS ENTRY 19GA needle opened to sterile field. 18:26:52 DIAGNOSTIC WIRE .035 260cm J wire (918241) opened to sterile field. 18:26:53 DIAGNOSTIC Multipack 5Fr catheter set (ZC8400) opened to sterile field. 18:26:56 SHEATH Prelude 6Fr 0.035 (SPM-9W-73-035) opened to sterile field. 18:26:59 TUBING High Pressure Extension Tubing (Henrik) ([id number]) opened to sterile field. 18:27:00 INFLATOR Merit BasixCompak (CM0881) opened to sterile field. 18:27:03 BMW 300cm Parker 2 J wire ([id number]) opened to sterile field. 18:27:14 A 6 Fr Short sheath was inserted into the Right Femoral artery 18:27:40 A MULTIPACK JL 4.0 5Fr catheter was advanced over the wire and used for Procedure. 18:28:30 LCA angiography performed. 18:28:39 IV Extension Set opened to sterile field. 18:29:37 Catheter exchanged over wire. 18:29:42 A MULTIPACK 3DRC 5Fr catheter was advanced over the wire and used for Procedure. 18:30:35 RCA angiography performed. 18:30:36 Catheter exchanged over wire. 18:32:18 Fentanyl 50 mcg I.V. was administered by Yony Dos Santos RN; for sedation; 18:32:18 GUIDE 6FR XBLAD 4.0 catheter ([id number]) opened to sterile field. 18:32:27 Heparin Bolus 5000 units I.V. was administered by Yony Dos Santos RN; for anticoagulation; 18:32:28 6 Fr XBLAD 4 guide catheter was inserted over the wire 18:34:06 BMW wire advanced. 18:37:49 Wire advanced across lesion. 18:38:17 Fentanyl 50 mcg I.V. was administered by Yony Dos Santos RN; for sedation; 18:39:55 The EMERGE OTW 3.0 x 20 balloon ([id number]) was advanced and then removed because of failure to cross lesion 18:42:31 Inflate balloon Inflation number: 1 A EMERGE OTW 2.0 x 15 balloon ([id number]) was prepped and advanced across the Mid LAD, then inflated to 14 ZULEIMA for 0:10 (min:sec). 18:43:18 Multiple inflations made at 14 atms. 18:48:09 Balloon removed over the wire. 18:49:54 Integrilin (Bolus 2mg/ml) 7.9 ml I.V. was administered by Yony Dos Santos RN; for antiplatelet therapy; 18:50:40 Phenergan 25 mg I.V. was administered by Yony Dos Santos RN; for nausea; 18:51:46 Inflate balloon Inflation number: 2 A EMERGE OTW 3.0 x 20 balloon ([id number]) was prepped and advanced across the Mid LAD, then inflated to 12 ZULEIMA for 0:10 (min:sec). 18:52:00 Multiple inflations made at 12 atms. 18:55:30 Integrilin Drip (75mg/100ml) 13.8 ml/hr I.V. drip was administered by Yony Dos Santos RN; for antiplatelet therapy; 18:58:28 Balloon removed over the wire. 19:00:14 Place stent Inflation Number: 1 A MANSI OTW 3.0 x 30 stent ([id number]) was prepped and advanced across the Dist LAD. The stent was deployed at 14 ZULEIMA for 0:10 (min:sec). 19:01:04 Stent catheter was removed intact over wire. 19:04:23 Place stent Inflation Number: 3 A MANSI OTW 3.5 x 26 stent ([id number]) was prepped and advanced across the Mid LAD. The stent was deployed at 12 ZULEIMA for 0:10 (min:sec). 19:05:54 Stent catheter was removed intact over wire. 19:09:41 Place stent Inflation Number: 2 A MANSI OTW 3.0 x 12 stent ([id number]) was prepped and advanced across the Dist LAD. The stent was deployed at 12 ZULEIMA for 0:10 (min:sec). 19:10:23 Stent catheter was removed intact over wire. 19:10:24 Wire removed. 19:10:24 Guide catheter removed. 19:11:34 A MULTIPACK Pigtail 5 Fr catheter was advanced over the wire and used for Procedure. 19:12:54 LV angiography performed. 19:13:14 LV gram done using UNGER 19:14:17 EF : 40 % 19:14:23 LV hemodynamics recorded. 19:14:31 Injector settings: Ml/sec: 10, Volume: 20, 19:15:13 Catheter removed. 19:15:18 EXOSEAL 6Fr (EX600) opened to sterile field. 19:15:31 Sheath removed intact; hemostasis achieved with Exoseal to the Right Femoral artery. 19:15:34 Procedure ended.(Physican Out) 19:16:23 Fluoroscopy time 19.40 minutes. 19:17:29 Fluoroscopy dose: 1739 mGy 19:17:29 Flurop Dose total: 1739 19:18:07 Contrast amount:Isovue 300 152ml. 19:18:08 Sharps counted by scrub and verified by R.N. 19:18:10 Insertion/operative site no bleeding no hematoma. 19:18:13 Post-op/insertion site Right Femoral artery dressed using a 4 x 4 and Tegaderm. 19:18:14 Post Procedure Pulses reassessed and unchanged 19:18:18 Post-procedure physical assessment completed. ASA score P 3 - A patient with severe systemic disease as per Joe Chester MD. 19:18:20 Post procedure rhythm: unchanged. 19:18:42 Brilinta 180 mg P.O. was administered by Yony Dos Santos RN; for antiplatelet therapy; 19:19:03 Estimated blood loss: 10 ml 19:19:10 Post procedure instruction explained to patient.Patient verbalizes understanding. 19:19:11 Patient needs reinforcement of post procedure teaching. 19:19:24 Procedure and supply charges have been captured, reviewed, submitted and are correct. 19:19:29 Procedure Complication : No complications 19:21:01 Vital chart was stopped 19:21:01 See physician's report for complete and final results. 19:21:04 Report given to CVICU. 19:21:09 Patient transfered to CVICU with Bed. 19:21:12 Procedure ended. 19:21:12 Full Disclosure recording stopped 19:21:52 End room use (Document Last) Intervention Summary Intervention Notes Time ActionType Lesion and Equipment Action# Pressure Duration Attributes Used 18:39:55 Discard EMERGE OTW Balloon 3.0 x 20 balloon ([id number]) 18:42:31 Inflate Mid LAD EMERGE OTW 1 14 00:10 balloon 2.0 x 15 balloon ([id number]) 18:51:46 Inflate Mid LAD EMERGE OTW 2 12 00:10 balloon 3.0 x 20 balloon ([id number]) 19:00:14 Place stent Dist LAD MANSI OTW 3.0 1 14 00:10 x 30 stent ([id number]) 19:04:23 Place stent Mid LAD MANSI OTW 3.5 3 12 00:10 x 26 stent ([id number]) 19:09:41 Place stent Dist LAD MANSI OTW 3.0 2 12 00:10 x 12 stent ([id number]) Device Usage Item Name Manufacture Quantity Catalog Number Hospital Part Current Minimal Lot# / Charge Number Stock Stock Serial# Code ACIST Syringe Acist 1 93464 525388 929127 962901 20 (13632) Medical Systems Inc Bag Decanter Microtek 1 2001S 061992 72079 111329 5 (2001S) Medical Inc. Medline Cath Cardinal 1 [id number] 104721 10689 004514 5 Pack Health ([id number]) ACIST Hand Acist 1 12187 491236 268400 139125 5 Control (23639) Medical Systems Inc ACIST Manifold Acist 1 99481 414788 467071 892115 5 (84616) Medical Systems Inc Tegaderm 4 x 4 3M 1 1626W 384427 093790 707633 5 (1626W) PERCUTANEOUS Cook Medical 1 B36207 367944 109802 5 ENTRY 19GA needle DIAGNOSTIC WIRE St Vish 1 138104 488024 213041 659841 30 .035 260cm J wire (316981) DIAGNOSTIC Cardinal 1 EV2287 129261 28209 936940 30 Multipack 5Fr Health catheter set (PE1728) SHEATH Prelude Merit 1 GZK-2A-87-35 442646 9805302 540442 5 6Fr 0.035 Medical (TDS-3H-51-035) TUBING High Merit 1 [id number] 284878 81673 267643 10 Pressure Medical Extension Tubing (Chester) (AD0014D) INFLATOR Merit Merit 1 JX8945 564162 376695 914863 15 [employer] [employer] Ssdk Medical (CS3140) BMW 300cm Pierce 1 [id number] 786462 608943 417933 5 Parker 2 J Vascular wire (1377746R) MULTIPACK JL Cardinal 1 312209 5 4.0 5Fr Health catheter IV Extension Hospira 1 831332 64799 843737 5 Set MULTIPACK 3DRC Cardinal 1 386714 5 5Fr catheter Health GUIDE 6FR XBLAD Cardinal 1 59704203 904915 282752 596004 3 4.0 catheter Health (95499359) EMERGE OTW 3.0 Neola 1 [id number] 831128 211234 361493 5 55808929 x 20 balloon Scientific ([id number]) EMERGE OTW 2.0 [place]ola 1 [id number] 256590 332417 680823 5 81617052 x 15 balloon Scientific ([id number]) MANSI OTW 3.0 x Medtronic 1 [id number] 762745 2997046 224457 5 [id number] 30 stent ([id number]) MANSI OTW 3.5 x Medtronic 1 [id number] 783542 5157939 786877 5 [id number] 26 stent ([id number]) MANSI OTW 3.0 x Medtronic 1 [id number] 760787 514481 332566 5 [id number] 12 stent ([id number]) MULTIPACK Cardinal 1 021454 5 Pigtail 5 Fr Health catheter EXOSEAL 6Fr Cardinal 1 EX600 213585 859449 651270 10 (EX600) Health Signature Audit [place] Stage Time Signature Unsigned Intra-Procedure 12/01/2017 Ronny Cason 7:22:07 PM RT(R) Signatures Monitor : Ronny Cason RT Signature : Date : Time : [address] [place] [address]
[~2017-12-01 17:30] MED LIST: METOPROLOL TART50 MG PO; PLAVIX75 MG PO; PRAVACHOL40 MG PO
[2017-12-01 19:00] VITALS: BP 116/79
[2017-12-01 20:00] VITALS: BP 109/76
[2017-12-01 20:35] VITALS: BP 114/75; BMI 26.8
[2017-12-01 21:00] VITALS: BP 112/78
[2017-12-01 22:00] VITALS: BP 109/79
[2017-12-01 23:00] VITALS: BP 114/76
[2017-12-02] VITALS (22 sets, daily range): BP systolic 109–147; BP diastolic 77–98; Ht 180.3 cm; Wt 85.9 kg
[2017-12-02 00:06] LABS: BASOPHILS 0.1 % (0-2); EOSINOPHILS 0.1 % (0-7); HEMATOCRIT 39.8 % (42.0-54.0); HEMOGLOBIN 14.5 g/dL (13.5-17.5); IMMATURE GRANULOCYTES 0.2 % (0-5); LYMPHOCYTES 5.9 % (15-50); MCH 31.9 pg (26.0-34.0); MCHC 36.4 g/dL (31.0-37.0); MCV 87.5 fL (80.0-100.0); MEAN PLATELET VOLUME 9.3 fL (7.4-10.4); MONOCYTES 3.7 % (2-11); RBC 4.55 10x6/uL (4.20-6.10); RDW 12.5 % (11.5-14.5); WBC 16.2 10x3/uL (4.8-10.8)
[2017-12-02 00:07] LABS: PLATELET COUNT 141 10x3/uL (130-400)
[2017-12-02 01:30] LABS: CALC OSMOLALITY 275 mosm/kg (275-300); CALCIUM 7.9 mg/dL (8.5-10.1); CARBON DIOXIDE 22.9 mmol/L (21.0-32.0); CHLORIDE - SERUM 103 mmol/L (98-107); CREATININE - SERUM 0.6 mg/dL (0.6-1.3); GLUCOSE 112 mg/dL (74-106); POTASSIUM - SERUM 4.1 mmol/L (3.5-5.1); SODIUM 138 mmol/L (136-145); UREA NITROGEN 9 mg/dL (7-18); eGFR NON AFRICAN AMERICAN > 90 mL/min (90-120)
[2017-12-02 01:38] LABS: CKMB 363.6 U/L (0.0-3.6); CREATINE KINASE 3942 UL (21-232); TROPONIN-I 152.882 ng/mL (0.000-0.060)
[2017-12-02 08:31] LABS: BASOPHILS 0.1 % (0-2); EOSINOPHILS 0 % (0-7); HEMATOCRIT 42.5 % (42.0-54.0); HEMOGLOBIN 15.3 g/dL (13.5-17.5); IMMATURE GRANULOCYTES 0.3 % (0-5); LYMPHOCYTES 8.6 % (15-50); MCH 31.5 pg (26.0-34.0); MCV 87.4 fL (80.0-100.0); MEAN PLATELET VOLUME 9.5 fL (7.4-10.4); MONOCYTES 4.2 % (2-11); NEUTROPHILS 86.8 % (40-80); PLATELET COUNT 156 10x3/uL (130-400); RBC 4.86 10x6/uL (4.20-6.10); RDW 12.7 % (11.5-14.5); WBC 17.2 10x3/uL (4.8-10.8)
[2017-12-02 09:06] LABS: CALC OSMOLALITY 274 mosm/kg (275-300); CALCIUM 8.4 mg/dL (8.5-10.1); CARBON DIOXIDE 22.4 mmol/L (21.0-32.0); CHLORIDE - SERUM 102 mmol/L (98-107); CKMB 273.8 U/L (0.0-3.6); GLUCOSE 119 mg/dL (74-106); POTASSIUM - SERUM 3.7 mmol/L (3.5-5.1); SODIUM 138 mmol/L (136-145); UREA NITROGEN 7 mg/dL (7-18)
[2017-12-02 09:07] LABS: CREATININE - SERUM 0.8 mg/dL (0.6-1.3)
[2017-12-02 09:08] LABS: CREATINE KINASE 3550 UL (21-232); eGFR NON AFRICAN AMERICAN > 90 mL/min (90-120)
[2017-12-02 13:24] LABS: CREATINE KINASE 2813 UL (21-232)
[2017-12-03] VITALS (11 sets, daily range): BP systolic 118–136; BP diastolic 86–98
[2017-12-03 04:03] LABS: BASOPHILS 0.1 % (0-2); EOSINOPHILS 0.7 % (0-7); HEMATOCRIT 44.6 % (42.0-54.0); HEMOGLOBIN 15.9 g/dL (13.5-17.5); IMMATURE GRANULOCYTES 0.3 % (0-5); MCH 31.5 pg (26.0-34.0); MCHC 35.7 g/dL (31.0-37.0); MCV 88.5 fL (80.0-100.0); MEAN PLATELET VOLUME 9.4 fL (7.4-10.4); MONOCYTES 7.8 % (2-11); NEUTROPHILS 77.1 % (40-80); PLATELET COUNT 144 10x3/uL (130-400); RBC 5.04 10x6/uL (4.20-6.10); RDW 12.7 % (11.5-14.5); WBC 14.2 10x3/uL (4.8-10.8)
[2017-12-03 04:29] LABS: CALC OSMOLALITY 280 mosm/kg (275-300); CALCIUM 8.6 mg/dL (8.5-10.1); CARBON DIOXIDE 26.7 mmol/L (21.0-32.0); CHLORIDE - SERUM 105 mmol/L (98-107); CKMB 37.8 U/L (0.0-3.6); CREATINE KINASE 1542 UL (21-232); CREATININE - SERUM 0.8 mg/dL (0.6-1.3); GLUCOSE 118 mg/dL (74-106); SODIUM 141 mmol/L (136-145); TROPONIN-I 36.121 ng/mL (0.000-0.060); UREA NITROGEN 9 mg/dL (7-18); eGFR NON AFRICAN AMERICAN > 90 mL/min (90-120)
== END 2017-12-03 10:45 | disposition home or self-care (01) | DRG 246 ==
LOC: D.CVICU 17:30
PROVIDERS: Internal Medicine Cardiovascular Disease
PROC: B2151ZZ Fluoroscopy of Left Heart using Low Osmolar Contrast (ICD-10-PCS; 2017-12-01)
PROC: 4A023N7 Measurement of Cardiac Sampling and Pressure, Left Heart, Percutaneous Approach (ICD-10-PCS; 2017-12-01)
PROC: 027036Z Dilation of Coronary Artery, One Artery with Three Drug-eluting Intraluminal Devices, Percutaneous Approach (ICD-10-PCS; principal; 2017-12-01 18:30)
PROC: B2111ZZ Fluoroscopy of Multiple Coronary Arteries using Low Osmolar Contrast (ICD-10-PCS; 2017-12-01 18:30)
DX: I97.190 Other postprocedural cardiac functional disturbances following cardiac surgery (principal); I21.A9 Other myocardial infarction type; I21.09 ST elevation (STEMI) myocardial infarction involving other coronary artery of anterior wall; T82.897A Other specified complication of cardiac prosthetic devices, implants and grafts, initial encounter; I10 Essential (primary) hypertension; I25.10 Atherosclerotic heart disease of native coronary artery without angina pectoris; E78.5 Hyperlipidemia, unspecified

== ENCOUNTER → 2018-10-30 10:04 | Outpatient (CLI) | payer OTHER ==
[2017-12-02 15:39] VITALS: BMI 26.7
== END | disposition home or self-care (01) ==
LOC: D.HCCARDIO 10-22 09:00
PROVIDERS: ATTEND Internal Medicine Interventional Cardiology
DX: I25.10 Atherosclerotic heart disease of native coronary artery without angina pectoris (principal)

== ENCOUNTER → 2018-10-30 16:43 | Outpatient (CLI) | payer OTHER ==
[2017-12-02 15:39] VITALS: BMI 26.7
[2018-10-30 17:05] LABS: CHOL - HDL RATIO 3.3 ratio (2.3-4.9)
--- NOTE | 2018-11-06 12:04 | EC ---
PATIENT:PRIYA SPRINGER DATE OF SERVICE: 10/30/18 SEX: M MEDICAL RECORD: [id number] DATE OF : 74 LOCATION:D.LAB AGE OF PATIENT: 48 ADMISSION DATE: 10/30/18 REFERRING PHYSICIAN: INTERPRETING PHYSICIAN: CUAUHTEMOC GARNICA MD ECHOCARDIOGRAM REPORT ECHO CHARGES Date: CLINICAL DIAGNOSIS: ECHOCARDIOGRAPHIC MEASUREMENTS (adult normal given) AC root (d.<3.7cm) cm LV Septum d (<1.2 cm> cm Valve Excursion cm LV Septum (systole) cm Left Atria (s.<4.0cm> cm LVPW d(<1.2cm) cm RV (d.<2.3cm) cm LVPW (sytole) cm LV diastole(<5.6CM) cm MV E-F(>70mm/sec) cm LV systole cm LVOT Diameter cm MV exc.(>10mm) cm Est.ejection fraction (50-75%) % DOPPLER: LVIT cm/sec A cm/sec E cm/sec LA cm/sec RVSP mmHg LVOT cm/sec AOP1/2T m/s Asc. Ao cm/sec RVOT cm/sec RA cm/sec PA cm/sec AV Gradient Peak mmHg AV Mean mmHg AV Area cm MV Gradient Peak mmHg MV Mean mmHg MV Area cm COMMENTS: Tin Tie Machine Operator Automatic: Advertising Sales Agent: DAYSI# Pericardial Effusion DATE OF SERVICE: 10/30/2018 PROCEDURE: Echocardiogram. FINDINGS: 1. Left ventricular chamber size is within normal limits. Left ventricular systolic function is preserved at 50%. 2. Left atrium is within normal limits at 3.5 cm. Right atrium and right ventricular chamber sizes are mildly dilated. 3. Valvular structures have normal structure and motion. ECHOCARDIOGRAM REPORT [id number] PRIYA SPRINGER 4. Doppler interrogation reveals mild mitral regurgitation, trace tricuspid regurgitation, no other valvular insufficiency or stenosis. Pulmonary systolic pressure is estimated at 27 mmHg. 5. No evidence of pericardial effusion or left ventricular thrombus. TRANSINT:[id number] Voice Confirmation ID: [id number] DOCUMENT ID: [id number] CUAUHTEMOC GARNICA MD at 1204 CC: [id number] DICTATION DATE: 11/05/18 1132 ALUMINUM MOLDER: 11/05/18 1142 DEP CLI 10/30/18 [place] [id number] [place] [address]
== END | disposition home or self-care (01) ==
LOC: D.LABREF 16:43
PROVIDERS: ATTEND Internal Medicine Interventional Cardiology
DX: E78.5 Hyperlipidemia, unspecified (principal)